=== PATIENT | male | born 2000 | race African-American/Black ===

== ENCOUNTER 2020-11-14 17:01 | Emergency (ER) | payer OTHER ==
[2020-11-14 17:13] VITALS: BP 134/82; PULSE 84; TEMP 98.7; BMI 23.7
[2020-11-14] MEDS ORDERED: METHOCARBAMOL 750 MG TAB PO ONE (18:00)
[2020-11-14] MEDS ORDERED: KETOROLAC TROMETHAMINE 30 MG/1 ML VIAL IM ONE (18:01)
[2020-11-14] MEDS ORDERED: KETOROLAC TROMETHAMINE 30 MG/1 ML VIAL ONE (18:04)
[2020-11-14] MEDS ORDERED: METHOCARBAMOL 500 MG TABLET ONE (18:04)
== END 2020-11-14 18:22 | disposition home or self-care (01) ==
LOC: FER 17:01
PROC: 3E0233Z Introduction of Anti-inflammatory into Muscle, Percutaneous Approach (ICD-10-PCS; principal; 2020-11-14)
DX: M62.830 Muscle spasm of back (principal)
CPT/HCPCS: 99284-25